=== PATIENT | female | born 1980 | race Caucasian/White ===

== ENCOUNTER 2020-02-03 08:24 | Outpatient (REF) | payer SELFPAY | END 2020-02-03 08:25 | disposition home or self-care (01) | LOC: HO.LAB 08:24 | PROVIDERS: Visit Provider Internal Medicine | DX: Z20.828 Contact with and (suspected) exposure to other viral communicable diseases (principal) | CPT/HCPCS: C9803; U0003 ==

== ENCOUNTER 2022-06-04 11:59 | Emergency (ER) | payer OTHER, SELFPAY ==
--- NOTE | ~2022-06-04 | CT_ITS ---
EXAMINATION: CT HEAD WITHOUT CONTRAST CLINICAL INFORMATION: Severe headache. Dizziness. Nausea. COMPARISON: None available. TECHNIQUE: Contiguous axial imaging was performed from the skull base to vertex without intravenous administration of contrast. This CT examination was performed using dose optimization techniques as appropriate, variously including the following: *Automated exposure control *Adjustment of mA and/or kV according to patient size (this includes techniques or standardized protocols for targeted exams where dose is matched to indication/reason for exam; i.e. extremities or head) *Use of iterative reconstruction technique DLP: 525 mGy-cm FINDINGS: There is no evidence of acute intracranial hemorrhage or territorial infarction. No abnormal mass effect or midline shift is appreciated. Jones-white differentiation is well preserved. No extra-axial fluid collections. The ventricular system and cortical sulci are normal in size. The osseous structures and soft tissues are normal. The visualized paranasal sinuses and mastoid air cells are well aerated. CT/CT head/brain wo IV con IMPRESSION: No CT evidence of acute intracranial abnormality.
[2022-06-04 12:18] VITALS: BP 120/45; PULSE 69; RESP 18; TEMP 36.9; O2SAT 99; BMI 21.7
--- NOTE | 2022-06-04 12:23 | ED_ITS ---
HPI - Headache General Chief Complaint: Headache <MAYELA Lyon - Last Filed: 06/06/22 07:39> Stated Complaint: severe headache <MAYELA Lyon - Last Filed: 06/06/22 07:39> Time Seen by Provider: 06/04/22 16:04 <MAYELA Lyon - Last Filed: 06/06/22 07:39> Source: patient <Claudette Ford MD - Last Filed: 06/04/22 18:53> Mode of arrival: ambulatory <Claudette Ford MD - Last Filed: 06/04/22 18:53> History of Present Illness HPI Narrative: This is a 41-year-old female who is not on any prescription medications and denies any past medical history of diabetes or hypertension. Patient presents with 2 days of headache with photosensitivity as well some mild nausea but denies any visual disturbances such as double vision/blurred vision and denies any auditory or speech changes and denies any difficulty with numbness /weakness in any extremities. Patient denies any fever, chills, ear pain, sinus pain, nasal congestion, sore throat. <Claudette Ford MD - Last Filed: 06/04/22 18:53> Related Data Allergies/Adverse Reactions: Allergies Allergy/AdvReac Type Severity Reaction Status Date / Time No Known Allergies Allergy Verified 06/04/22 12:18 <MAYELA Lyon - Last Filed: 06/06/22 07:39> Review of Systems 2 Review of Systems: Pertinent positives and negatives as stated in HPI. <Claudette Ford MD - Last Filed: 06/04/22 18:53> FOR[facility]LY [facility] Past Medical History Source: nursing notes reviewed <Claudette Ford MD - Last Filed: 06/04/22 18:53> Social History Social History: Social History Advance Directives: No Advance Directives Information Provided: No <MAYELA Lyon - Last Filed: 06/06/22 07:39> Physical Exam Vital Signs: Vital Signs: Last Vital Signs Temp 98.4 F 06/04/22 12:18 Pulse 67 06/04/22 16:37 Resp 16 06/04/22 16:37 BP 118/70 06/04/22 16:37 Pulse Ox 99 06/04/22 16:37 O2 Del Method Room Air 06/04/22 16:37 BMI result Body Mass Index 21.7 <MAYELA Lyon - Last Filed: 06/06/22 07:39> Vital Signs: Last Vital Signs Temp 98.4 F 06/04/22 12:18 Pulse 67 06/04/22 16:37 Resp 16 06/04/22 16:37 BP 118/70 06/04/22 16:37 Pulse Ox 99 06/04/22 16:37 O2 Del Method Room Air 06/04/22 16:37 BMI result Body Mass Index 21.7 VITAL SIGNS: Reviewed. GENERAL: Well developed, well nourished, in no acute distress. HEAD: Normocephalic/atraumatic EYES: PERRLA, EOMI EARS: Ext canals without abnormality, TMs non-bulging and non-erythematous NOSE: Nares patent bilateral OROPHARYNX: no oral lesions noted, posterior pharynx clear and non-erythematous without noted tonsillar enlargement/erythema/exudates NECK: Supple, no adenopathy, no pain on flexion or extension LUNGS: Normal breath sounds. No adventitious sounds or accessory muscle use. SpO2<99> CARDIOVASCULAR: Regular rate and rhythm without noted murmurs ABDOMEN: Soft, non-tender, non-distended with bowel sounds. MUSCULOSKELETAL: No tenderness, deformities, or effusions noted on gross inspection. EXTREMITIES: No cyanosis, clubbing or edema. SKIN: Inspection of the skin reveals no rashes NEUROLOGIC: Alert and oriented x 4. Strength and sensation to light touch were grossly intact x 4, no facial asymmetry, no pronator drift, cranial nerves 2-12 are grossly intact. <Claudette Ford MD - Last Filed: 06/04/22 18:53> Course Course Course Narrative: RME; 41 Yolld presents to the ED for headache, photophobia, and nausea since yesterday. patient has pmh of meningitis. negative for any fever or chills. exam negative for nucal rigidity or any neck meningeal symptoms. labs, HeadCT, SARS ordered. Neuro exam is intact. <MAYELA Lyon - Last Filed: 06/06/22 07:39> Medications Administered Discontinued Medications Generic Name Dose Route Start Last Admin Trade Name Freq PRN Reason Stop Dose Admin Acetaminophen 975 mg 06/04/22 13:15 06/04/22 13:25 Acetaminophen 325 Mg Tablet PO 06/04/22 13:16 975 mg ONCE ONE Administration Acetaminophen/Butalbital/Caffeine 1 tab 06/04/22 18:08 06/04/22 18:27 Butalb/Acetamin/Caff 50/325/40 Tablet PO 06/04/22 18:09 1 tab ONCE ONE Administration Diphenhydramine HCl 25 mg 06/04/22 16:06 06/04/22 16:31 Diphenhydramine Hcl 50 Mg/Ml Vial IVPUSH 06/04/22 16:07 25 mg ONCE ONE Administration Sodium Chloride 1,000 mls @ 999 mls/hr 06/04/22 16:15 06/04/22 18:05 Ns IV 06/04/22 17:15 Infused .Q1H1M KEVIN Infusion Ketorolac Tromethamine 15 mg 06/04/22 16:06 06/04/22 16:32 Ketorolac Tromethamine 30 Mg/Ml Vial IVPUSH 06/04/22 16:07 15 mg ONCE ONE Administration Metoclopramide HCl 10 mg 06/04/22 16:06 06/04/22 16:32 Metoclopramide Hcl 10 Mg/2 Ml Vial IVPUSH 06/04/22 16:07 10 mg ONCE ONE Administration <MAYELA Lyon - Last Filed: 06/06/22 07:39> Medications Administered Discontinued Medications Generic Name Dose Route Start Last Admin Trade Name Freq PRN Reason Stop Dose Admin Acetaminophen 975 mg 06/04/22 13:15 06/04/22 13:25 Acetaminophen 325 Mg Tablet PO 06/04/22 13:16 975 mg ONCE ONE Administration Acetaminophen/Butalbital/Caffeine 1 tab 06/04/22 18:08 06/04/22 18:27 Butalb/Acetamin/Caff 50/325/40 Tablet PO 06/04/22 18:09 1 tab ONCE ONE Administration Diphenhydramine HCl 25 mg 06/04/22 16:06 06/04/22 16:31 Diphenhydramine Hcl 50 Mg/Ml Vial IVPUSH 06/04/22 16:07 25 mg ONCE ONE Administration Sodium Chloride 1,000 mls @ 999 mls/hr 06/04/22 16:15 06/04/22 18:05 Ns IV 06/04/22 17:15 Infused .Q1H1M KEVIN Infusion Ketorolac Tromethamine 15 mg 06/04/22 16:06 06/04/22 16:32 Ketorolac Tromethamine 30 Mg/Ml Vial IVPUSH 06/04/22 16:07 15 mg ONCE ONE Administration Metoclopramide HCl 10 mg 06/04/22 16:06 06/04/22 16:32 Metoclopramide Hcl 10 Mg/2 Ml Vial IVPUSH 06/04/22 16:07 10 mg ONCE ONE Administration <Claudette Ford MD - Last Filed: 06/04/22 18:53> Medical Decision Making Medical Decision Making MDM Narrative: 41-year-old female with history and clinical presentation most consistent with a migraine. Patient clarifies whether she would be able to go to work tomorrow. Will rehydrate and treat patient with combination analgesics. Patient has no focal deficits and I have no clinical suspicion that this is meningitis. On re-evaluation after patient received IV fluids and combination medications to include migraine cocktail she states that she is feeling better and is otherwise discharged home in stable condition with instructions to follow-up with her primary care doctor. <Claudette Ford MD - Last Filed: 06/04/22 18:53> Differential Diagnosis Please see the discussion above <Claudette Ford MD - Last Filed: 06/04/22 18:53> Lab Data Please see the discussion above <Claudette Ford MD - Last Filed: 06/04/22 18:53> Result Diagrams: 06/04/22 12:54 06/04/22 12:54 <AMYELA Lyon - Last Filed: 06/06/22 07:39> Labs: Lab Results 06/04/22 06/04/22 06/04/22 Range/Units 12:54 12:54 12:54 WBC 11.2 H (4.8-10.8) X10*3/uL RBC 5.51 H (4.20-5.50) X10*6/uL Hgb 15.2 (12.0-16.0) g/dl Hct 44.4 (37.0-47.0) % MCV 80.6 (80.0-98.0) fL MCH 27.6 (27.0-33.0) pg MCHC 34.2 (31.0-35.0) g/dl RDW 12.1 (11.0-16.0) % Plt Count 252 (160-400) X10*3/uL MPV 9.6 (9.4-12.3) fL Immature Gran % (Auto) 0.4 (0.0-0.4) % Neut % (Auto) 75.9 H (45-73) % Lymph % (Auto) 18.2 L (20-40) % Pershing % (Auto) 4.6 (2-11) % Eos % (Auto) 0.6 (0-4) % Baso % (Auto) 0.3 (0-2) % Lymph # (Auto) 2.1 (1.2-4.9) X10*3/uL Pershing # (Auto) 0.5 (0.1-1.2) X10*3/uL Eos # (Auto) 0.1 (0.0-0.4) X10*3/uL Baso # (Auto) 0.0 (0.0-0.2) X10*3/uL Abs Immat Gran (auto) 0.04 H (0.00-0.03) X10*3/uL Absolute Neuts (auto) 8.5 H (2.0-8.3) x10*3/uL Absolute Nucleated RBC 0.000 (0.0-0.012) X10*3/uL Nucleated RBC % (auto) 0.0 (0.0-0.2) /100WBC ESR 2 (0-20) MM/HR PT (10.0-13.1) SEC INR (0.9-1.1) APTT (26.0-36.4) SEC Sodium 140 (135-145) mmol/L Potassium 4.2 (3.3-5.1) mmol/L Chloride 107 (96-108) mmol/L Carbon Dioxide 26 (22-29) mmol/L Anion Gap 11 L (12-20) BUN 10 (9-16) mg/dL Creatinine 0.75 (0.5-1.4) mg/dL Estim Creat Clear Calc 83.5 Estimated GFR > 60 Random Glucose 89 (60-115) mg/dL Calcium 9.7 (8.4-10.2) mg/dL Total Bilirubin 0.8 (0.0-1.0) mg/dL AST 13 (5-31) U/L ALT 12 (0-31) U/L Alkaline Phosphatase 63 (39-117) U/L C-Reactive Protein 0.10 (< or = 0.50) mg/dL Total Protein 7.3 (6.5-8.0) g/dL Albumin 4.7 (3.5-5.0) g/dL Beta HCG, Quant < 2 mIU/mL Influenza Type A (PCR) (Negative) Influenza Type B (PCR) (Negative) RSV RNA Qual (PCR) (Negative) SARS-CoV-2 RNA (RT-PCR) (Negative) 06/04/22 06/04/22 Range/Units 12:54 12:54 WBC (4.8-10.8) X10*3/uL RBC (4.20-5.50) X10*6/uL Hgb (12.0-16.0) g/dl Hct (37.0-47.0) % MCV (80.0-98.0) fL MCH (27.0-33.0) pg MCHC (31.0-35.0) g/dl RDW (11.0-16.0) % Plt Count (160-400) X10*3/uL MPV (9.4-12.3) fL Immature Gran % (Auto) (0.0-0.4) % Neut % (Auto) (45-73) % Lymph % (Auto) (20-40) % Pershing % (Auto) (2-11) % Eos % (Auto) (0-4) % Baso % (Auto) (0-2) % Lymph # (Auto) (1.2-4.9) X10*3/uL Pershing # (Auto) (0.1-1.2) X10*3/uL Eos # (Auto) (0.0-0.4) X10*3/uL Baso # (Auto) (0.0-0.2) X10*3/uL Abs Immat Gran (auto) (0.00-0.03) X10*3/uL Absolute Neuts (auto) (2.0-8.3) x10*3/uL Absolute Nucleated RBC (0.0-0.012) X10*3/uL Nucleated RBC % (auto) (0.0-0.2) /100WBC ESR (0-20) MM/HR PT 11.7 (10.0-13.1) SEC INR 1.0 (0.9-1.1) APTT 30.8 (26.0-36.4) SEC Sodium (135-145) mmol/L Potassium (3.3-5.1) mmol/L Chloride (96-108) mmol/L Carbon Dioxide (22-29) mmol/L Anion Gap (12-20) BUN (9-16) mg/dL Creatinine (0.5-1.4) mg/dL Estim Creat Clear Calc Estimated GFR Random Glucose (60-115) mg/dL Calcium (8.4-10.2) mg/dL Total Bilirubin (0.0-1.0) mg/dL AST (5-31) U/L ALT (0-31) U/L Alkaline Phosphatase (39-117) U/L C-Reactive Protein (< or = 0.50) mg/dL Total Protein (6.5-8.0) g/dL Albumin (3.5-5.0) g/dL Beta HCG, Quant mIU/mL Influenza Type A (PCR) NEGATIVE (Negative) Influenza Type B (PCR) NEGATIVE (Negative) RSV RNA Qual (PCR) NEGATIVE (Negative) SARS-CoV-2 RNA (RT-PCR) NEGATIVE (Negative) <MAYELA Lyon - Last Filed: 06/06/22 07:39> Lab Results 06/04/22 06/04/22 06/04/22 Range/Units 12:54 12:54 12:54 WBC 11.2 H (4.8-10.8) X10*3/uL RBC 5.51 H (4.20-5.50) X10*6/uL Hgb 15.2 (12.0-16.0) g/dl Hct 44.4 (37.0-47.0) % MCV 80.6 (80.0-98.0) fL MCH 27.6 (27.0-33.0) pg MCHC 34.2 (31.0-35.0) g/dl RDW 12.1 (11.0-16.0) % Plt Count 252 (160-400) X10*3/uL MPV 9.6 (9.4-12.3) fL Immature Gran % (Auto) 0.4 (0.0-0.4) % Neut % (Auto) 75.9 H (45-73) % Lymph % (Auto) 18.2 L (20-40) % Pershing % (Auto) 4.6 (2-11) % Eos % (Auto) 0.6 (0-4) % Baso % (Auto) 0.3 (0-2) % Lymph # (Auto) 2.1 (1.2-4.9) X10*3/uL Pershing # (Auto) 0.5 (0.1-1.2) X10*3/uL Eos # (Auto) 0.1 (0.0-0.4) X10*3/uL Baso # (Auto) 0.0 (0.0-0.2) X10*3/uL Abs Immat Gran (auto) 0.04 H (0.00-0.03) X10*3/uL Absolute Neuts (auto) 8.5 H (2.0-8.3) x10*3/uL Absolute Nucleated RBC 0.000 (0.0-0.012) X10*3/uL Nucleated RBC % (auto) 0.0 (0.0-0.2) /100WBC ESR 2 (0-20) MM/HR PT (10.0-13.1) SEC INR (0.9-1.1) APTT (26.0-36.4) SEC Sodium 140 (135-145) mmol/L Potassium 4.2 (3.3-5.1) mmol/L Chloride 107 (96-108) mmol/L Carbon Dioxide 26 (22-29) mmol/L Anion Gap 11 L (12-20) BUN 10 (9-16) mg/dL Creatinine 0.75 (0.5-1.4) mg/dL Estim Creat Clear Calc 83.5 Estimated GFR > 60 Random Glucose 89 (60-115) mg/dL Calcium 9.7 (8.4-10.2) mg/dL Total Bilirubin 0.8 (0.0-1.0) mg/dL AST 13 (5-31) U/L ALT 12 (0-31) U/L Alkaline Phosphatase 63 (39-117) U/L C-Reactive Protein 0.10 (< or = 0.50) mg/dL Total Protein 7.3 (6.5-8.0) g/dL Albumin 4.7 (3.5-5.0) g/dL Beta HCG, Quant < 2 mIU/mL Influenza Type A (PCR) (Negative) Influenza Type B (PCR) (Negative) RSV RNA Qual (PCR) (Negative) SARS-CoV-2 RNA (RT-PCR) (Negative) 06/04/22 06/04/22 Range/Units 12:54 12:54 WBC (4.8-10.8) X10*3/uL RBC (4.20-5.50) X10*6/uL Hgb (12.0-16.0) g/dl Hct (37.0-47.0) % MCV (80.0-98.0) fL MCH (27.0-33.0) pg MCHC (31.0-35.0) g/dl RDW (11.0-16.0) % Plt Count (160-400) X10*3/uL MPV (9.4-12.3) fL Immature Gran % (Auto) (0.0-0.4) % Neut % (Auto) (45-73) % Lymph % (Auto) (20-40) % Pershing % (Auto) (2-11) % Eos % (Auto) (0-4) % Baso % (Auto) (0-2) % Lymph # (Auto) (1.2-4.9) X10*3/uL Pershing # (Auto) (0.1-1.2) X10*3/uL Eos # (Auto) (0.0-0.4) X10*3/uL Baso # (Auto) (0.0-0.2) X10*3/uL Abs Immat Gran (auto) (0.00-0.03) X10*3/uL Absolute Neuts (auto) (2.0-8.3) x10*3/uL Absolute Nucleated RBC (0.0-0.012) X10*3/uL Nucleated RBC % (auto) (0.0-0.2) /100WBC ESR (0-20) MM/HR PT 11.7 (10.0-13.1) SEC INR 1.0 (0.9-1.1) APTT 30.8 (26.0-36.4) SEC Sodium (135-145) mmol/L Potassium (3.3-5.1) mmol/L Chloride (96-108) mmol/L Carbon Dioxide (22-29) mmol/L Anion Gap (12-20) BUN (9-16) mg/dL Creatinine (0.5-1.4) mg/dL Estim Creat Clear Calc Estimated GFR Random Glucose (60-115) mg/dL Calcium (8.4-10.2) mg/dL Total Bilirubin (0.0-1.0) mg/dL AST (5-31) U/L ALT (0-31) U/L Alkaline Phosphatase (39-117) U/L C-Reactive Protein (< or = 0.50) mg/dL Total Protein (6.5-8.0) g/dL Albumin (3.5-5.0) g/dL Beta HCG, Quant mIU/mL Influenza Type A (PCR) NEGATIVE (Negative) Influenza Type B (PCR) NEGATIVE (Negative) RSV RNA Qual (PCR) NEGATIVE (Negative) SARS-CoV-2 RNA (RT-PCR) NEGATIVE (Negative) <Claudette Ford MD - Last Filed: 06/04/22 18:53> Radiology Impression Radiologist Impression: My interpretation is in agreement with radiology's impression of the imaging studies. <Claudette Ford MD - Last Filed: 06/04/22 18:53> Discharge Plan Discharge Clinical Impression: Headache <MAYELA Lyon - Last Filed: 06/06/22 07:39> Patient Disposition: Home, Self-Care <MAYELA Lyon - Last Filed: 06/06/22 07:39> Instructions: General Headache (ED) <MAYELA Lyon - Last Filed: 06/06/22 07:39> Additional Instructions: 1. Tylenol 1000 mg, orally, every 6 hours as needed for headache. Do not exceed 4000mg within 24 hours. 2. Ibuprofen 400 mg, orally with milk or food, every 6 hours as needed for headache. I recommend that you take this with the Tylenol for improved symptom relief. 3. Also recommend that you stay well hydrated, especially with water. 4. Follow-up with your primary care provider by calling the office on Sunday morning. Return to the ER for any worsening symptoms. <MAYELA Lyon - Last Filed: 06/06/22 07:39> Referrals: Martina Cardona MD [Primary Care Provider] - <MAYELA Lyon - Last Filed: 06/06/22 07:39> Interventions: ED Discharge Assessment Last Done: 06/04/22 19:07 <MAYELA Lyon - Last Filed: 06/06/22 07:39> Discharge Date/Time: 06/04/22 19:08 <MAYELA Lyon - Last Filed: 06/06/22 07:39>
[2022-06-04 12:59] LABS: MANUAL DIFF FLAG NO
[2022-06-04 13:00] LABS: Basophils Percent Auto 0.3 % (0-2); Eosinophils Absolute Auto 0.1 X10*3/uL (0.0-0.4); Eosinophils Percent Auto 0.6 % (0-4); Hematocrit 44.4 % (37.0-47.0); Hemoglobin 15.2 g/dl (12.0-16.0); Imm Gran Abs Auto 0.04 X10*3/uL (0.00-0.03); Imm Gran Pct Auto 0.4 % (0.0-0.4); Lymphocytes Absolute Auto 2.1 X10*3/uL (1.2-4.9); Lymphocytes Percent Auto 18.2 % (20-40); Mean Corpuscular HGB Conc 34.2 g/dl (31.0-35.0); Mean Corpuscular Hemoglobin 27.6 pg (27.0-33.0); Mean Corpuscular Volume 80.6 fL (80.0-98.0); Mean Platelet Volume 9.6 fL (9.4-12.3); Monocytes Absolute Auto 0.5 X10*3/uL (0.1-1.2); Monocytes Percent Auto 4.6 % (2-11); Neutrophils Absolute Auto 8.5 x10*3/uL (2.0-8.3); Neutrophils Percent Auto 75.9 % (45-73); Platelet Count 252 X10*3/uL (160-400); Red Blood Count 5.51 X10*6/uL (4.20-5.50); Red Cell Distribution Width 12.1 % (11.0-16.0); White Blood Count 11.2 X10*3/uL (4.8-10.8)
[2022-06-04 13:06] LABS: Prothrombin Time 11.7 SEC (10.0-13.1)
[2022-06-04 13:08] LABS: Partial Thromboplastin Time 30.8 SEC (26.0-36.4)
[2022-06-04 13:20] LABS: Alanine Aminotransferase 12 U/L (0-31); Albumin Level 4.7 g/dL (3.5-5.0); Alkaline Phosphatase 63 U/L (39-117); Anion Gap 11 (12-20); Aspartate Amino Transferase 13 U/L (5-31); Bilirubin Total 0.8 mg/dL (0.0-1.0); Blood Urea Nitrogen 10 mg/dL (9-16); Calcium 9.7 mg/dL (8.4-10.2); Carbon Dioxide 26 mmol/L (22-29); Chloride 107 mmol/L (96-108); Creatinine Clr Calc Pharmacy 83.5; Estimated Glomerular Filt Rate > 60; Glucose Random 89 mg/dL (60-115); Potassium 4.2 mmol/L (3.3-5.1); Sodium 140 mmol/L (135-145); Total Protein 7.3 g/dL (6.5-8.0)
[2022-06-04 13:24] LABS: HCG Quantitative < 2 mIU/mL
[2022-06-04] MEDS: Acetaminophen 325 MG TABLET 975 MG PO (13:25)
[2022-06-04 13:39] LABS: Influenza A PCR NEGATIVE (Negative); Influenza B PCR NEGATIVE (Negative); Resp Syncy Virus RNA Qual PCR NEGATIVE (Negative); SARS COV2 PCR INHOUSE NEGATIVE (Negative)
[2022-06-04 13:53] LABS: Erythrocyte Sedimentation Rate 2 MM/HR (0-20)
[2022-06-04] MEDS: diphenhydrAMINE HCL 50 MG/ML VIAL 25 MG IVPUSH (16:31)
[2022-06-04] MEDS: Metoclopramide HCl 10 MG/2 ML VIAL IVPUSH (16:32)
[2022-06-04] MEDS: Ketorolac Tromethamine 30 MG/ML VIAL 15 MG IVPUSH (16:32)
[2022-06-04] MEDS: 0.9 % Sodium Chloride 1,000 ML 999 ML IV (16:35)
[2022-06-04 16:37] VITALS: BP 118/70; PULSE 67; RESP 16; O2SAT 99
[2022-06-04] MEDS: Butalb/Acetamin/Caff 50/325/40 TABLET 1 TAB PO (18:27)
== END 2022-06-04 19:08 | disposition home or self-care (01) ==
PROVIDERS: Physician Assistant; Emergency Provider Student in an Organized Health Care Education/Training Program; PCP Internal Medicine
DX: R51.9 Headache, unspecified (principal); R11.0 Nausea; Z79.899 Other long term (current) drug therapy; Z20.822 Contact with and (suspected) exposure to COVID-19; Z20.828 Contact with and (suspected) exposure to other viral communicable diseases
CPT/HCPCS: 0241U; 36415; 70450; 80053; 84702; 85025; 85610; 85652; 85730; 86140; 96361; 96374; 96375; 99284; J1200; J1885; J2765

== ENCOUNTER 2023-12-04 12:22 | Emergency (ER) | payer OTHER, SELFPAY ==
--- NOTE | 2023-12-04 | ECG_ITS ---
Test Reason : PALPITATIONS Blood Pressure : / mmHG Vent. Rate : 060 BPM Atrial Rate : 060 BPM P-R Int : 144 ms QRS Dur : 064 ms QT Int : 376 ms P-R-T Axes : 032 081 052 degrees QTc Int : 376 ms Normal sinus rhythm Normal ECG When compared with ECG of 04-DEC-2023 12:31, Vent. rate has decreased BY 151 BPM rhythm change Referred By: Emily Last Electronically Signed By:SANJUANITA CARO
--- NOTE | ~2023-12-04 | XR_ITS ---
EXAMINATION: XR CHEST CLINICAL INFORMATION: SVT COMPARISON: None available. TECHNIQUE: Frontal view of the chest was obtained. FINDINGS: No significant abnormality is noted involving the heart, lungs, mediastinum, bony thorax or soft tissues. XR/XR chest 1V IMPRESSION: Unremarkable examination. Electronically signed by: Nadja Marin MD 12/04/2023 02:35 PM EDT RP
--- NOTE | 2023-12-04 12:30 | ECG_ITS ---
Test Reason : PALPITATIONS Blood Pressure : / mmHG Vent. Rate : 211 BPM Atrial Rate : 214 BPM P-R Int : 096 ms QRS Dur : 072 ms QT Int : 206 ms P-R-T Axes : 047 083 -73 degrees QTc Int : 386 ms Supraventricular tachycardia Abnormal ECG No previous ECGs available Referred By: Jessica Lanza Electronically Signed By:SANJUANITA CARO
[2023-12-04 12:48] VITALS: BP 119/71; PULSE 117; RESP 16; TEMP 36.9; O2SAT 99; BMI 23.2
[2023-12-04 12:57] VITALS: BP 117/83; PULSE 89; RESP 12; O2SAT 99
[2023-12-04 12:58] VITALS: BP 119/71; PULSE 120
[2023-12-04] MEDS: 0.9 % Sodium Chloride 1,000 ML 999 ML IV (12:58)
[2023-12-04] MEDS: Metoprolol Tartrate 25 MG TABLET PO (12:58)
--- NOTE | 2023-12-04 13:06 | PC.NURSE ---
patient presents through external triage with cc of palpitations, states she has been feeling them on and off for the last hour or so and when they come on she also has some shortness of breath. patient noted to have HR in the 200s in external triage, brought immediately to ED16 and MD immediately at bedside to assess. while placing patient on monitor patient noted to be intermittently tachycardic in the 200s, frequenty converting on her own down to a rate of 80s with NSR noted on monitor. patient states this has happened in the past and she has an appointment with a electric power machine operator scheduled for this but came in today after her PCP advised her to be seen. patient denies any chest pain or swelling to extremities. states she does not take any medications at home, and denies any recent illness. patient VS otherwise wnl. able to speak in clear and complete sentences, patient is alert and oriented x4, vasovagal maneuvers demonstrated with patient and able to perform and intermittently come out of SVT on her own. patient able to take PO metoprolol per APR, 20g PIV placed in RAC, 1L IV fluids hung and flowing wide open. chest xray at bedside at this time. blood work drawn and sent to lab.
[2023-12-04 13:08] LABS: MANUAL DIFF FLAG NO
[2023-12-04 13:11] LABS: Basophils Percent Auto 0.3 % (0-2); Eosinophils Absolute Auto 0.1 X10*3/uL (0.0-0.4); Eosinophils Percent Auto 0.8 % (0-4); Hematocrit 39.7 % (37.0-47.0); Hemoglobin 13.5 g/dl (12.0-16.0); Imm Gran Abs Auto 0.04 X10*3/uL (0.00-0.03); Imm Gran Pct Auto 0.5 % (0.0-0.4); Lymphocytes Absolute Auto 2.6 X10*3/uL (1.2-4.9); Lymphocytes Percent Auto 30.4 % (20-40); Mean Corpuscular Hemoglobin 27.7 pg (27.0-33.0); Mean Corpuscular Volume 81.5 fL (80.0-98.0); Mean Platelet Volume 9.6 fL (9.4-12.3); Monocytes Absolute Auto 0.6 X10*3/uL (0.1-1.2); Monocytes Percent Auto 7.2 % (2-11); Neutrophils Absolute Auto 5.3 x10*3/uL (2.0-8.3); Neutrophils Percent Auto 60.8 % (45-73); Platelet Count 228 X10*3/uL (160-400); Red Blood Count 4.87 X10*6/uL (4.20-5.50); Red Cell Distribution Width 12.9 % (11.0-16.0); White Blood Count 8.7 X10*3/uL (4.8-10.8)
[2023-12-04 13:30] VITALS: BP 104/82; PULSE 70; RESP 16; O2SAT 100
[2023-12-04 13:32] LABS: B Type Natriuretic Peptide 42 pg/mL (<100)
[2023-12-04 13:36] LABS: Troponin-I High Sensitivity < 2.7 ng/L (<3.5-17.0)
[2023-12-04 13:42] LABS: Alanine Aminotransferase 18 U/L (0-31); Albumin Level 3.9 g/dL (3.5-5.0); Alkaline Phosphatase 52 U/L (39-117); Anion Gap 11 (12-20); Aspartate Amino Transferase 18 U/L (5-31); Bilirubin Direct 0.1 mg/dL (0.0-0.5); Bilirubin Total 0.5 mg/dL (0.0-1.0); Blood Urea Nitrogen 11 mg/dL (9-16); Calcium 8.9 mg/dL (8.4-10.2); Carbon Dioxide 23 mmol/L (22-29); Chloride 110 mmol/L (96-108); Creatinine Clr Calc Pharmacy 83.7; Estimated Glomerular Filt Rate > 60; Glucose Random 91 mg/dL (60-115); Lipase 33 U/L (8-78); Magnesium 2.1 mg/dL (1.6-2.6); Potassium 3.9 mmol/L (3.3-5.1); Sodium 140 mmol/L (135-145); Total Protein 6.3 g/dL (6.5-8.0)
[2023-12-04 13:44] LABS: Appearance Urine Clear; Color Urine Yellow; Glucose Urine UA Negative (Negative); Leukocyte Esterase Urine Negative (Negative); Nitrite Urine Negative (Negative); PH 7.5 (5.0-9.0); Specific Gravity - Urine <= 1.005 (1.005-1.025); UMIC TRIGGER UACC YES; Urine Blood Trace (Negative); Urine Ketones Negative (Negative); Urine Protein Negative (Neg-Trace)
[2023-12-04 13:45] LABS: UPreg QC Valid YES; Urine Pregnancy NEGATIVE (NEGATIVE)
[2023-12-04 13:46] LABS: Bacteria Urine None Seen (None Seen); Hyaline Casts Urine 0-2 /LPF (0-2); RBC Urine 0-2 /HPF (0-2); Squamous Epithelial Cell Urine 0-2 /HPF (0-2); WBC Urine 0-5 /HPF (0-5)
--- NOTE | 2023-12-04 13:46 | ED_ITS ---
HPI - Arrhythmia/Palpitations General Chief Complaint: Arrhythmia/Palpitations Stated Complaint: Abnormal heart rate Time Seen by Provider: 12/04/23 12:51 Source: patient Mode of arrival: ambulatory Limitations: no limitations History of Present Illness ED Provider: DR. Last HPI narrative: 42-year-old female otherwise healthy came in for evaluation of palpitation found to have heart rate of above 200, patient was brought to room 16 patient is calm, patient is in SVT with high rate of 170-200, SVT break down with Valsalva maneuver, no CP, no SOB, no lower extremity swelling or tenderness, patient has no known medical history, seen by her PCP last week for similar symptoms and supposed to see court officer in 2 days Related Data Previous Rx's ?Medication ?Instructions ?Recorded metoprolol succinate 25 mg 12.5 mg (1/2 x 25 mg) PO DAILY #14 12/04/23 tablet,extended release 24 hr tabs Allergies Allergy/AdvReac Type Severity Reaction Status Date / Time No Known Allergies Allergy Verified 12/04/23 12:52 Review of Systems 2 Review of Systems: All other systems are reviewed and are negative Constitutional: Reports as per HPI and Reports no additional constitutional complaints Eyes: Reports as per HPI and Reports no additional eye complaints Reports system reviewed and no additional complaints, except as documented Cardiovascular: Reports as per HPI and Reports no additional cardiovascular complaints Respiratory: Reports as per HPI and Reports no additional respiratory complaints Gastrointestinal: Reports as per HPI and Reports no additional gastrointestinal complaints Genitourinary: Reports no additional female genitourinary complaints Musculoskeletal: Reports no additional musculoskeletal complaints Skin/Breast: Reports system reviewed and no additional complaints, except as docu Psychiatric: Reports no additional psychiatric complaints Endocrine: Reports no additional endocrine complaints Hematologic/Lymphatic: Reports no additional hematologic/lymphatic complaints Allergic/Immunologic: Reports no additional allergic/immunologic complaints Reports system reviewed and no additional complaints, except as documented and Reports Abnormal speech present [facility] Social History Social History Smoked in Last 30 Days: No Use of substances other than those prescribed or required for medical reasons: No Advance Directives: No Advance Directives Information Provided: Yes Do you have a plan to hurt others: No Plan Patient : No Physical Exam 2 Vital Signs: Vital Signs: Last Vital Signs Temp 98.2 F 12/04/23 14:30 Pulse 73 12/04/23 14:30 Resp 16 12/04/23 14:30 BP 102/74 12/04/23 14:30 Pulse Ox 98 12/04/23 14:30 O2 Del Method Room Air 12/04/23 14:30 BMI result Body Mass Index 23.2 Vital signs have been reviewed and appear to be correct. Blood pressure elevated. Heart rate normal. Respiratory rate normal. Temperature normal. Oxygen saturation normal. Appearance: Alert. Oriented X3. No acute distress. Head: Normal external exam. Normocephalic. Atraumatic. No Russ signs noted. No raccoon eyes noted Eyes: PERRLA. EOMI. Conjunctiva and sclera normal. Eyelids normal. ENT: TM's Normal. Pharynx normal. Uvula midline. Moist mucous membranes. No trismus noted. No drooling noted. No muffled voice noted. Neck: Normal inspection. Neck supple. FROM. No adenopathy. Thyroid Normal. No meningeal signs. No neck mass noted. CVS: Normal heart rate and rhythm. Heart sound normal. No murmurs noted. Pulses normal throughout. Respiratory: No respiratory distress. Painless inspiration. Breath sounds normal. No wheezes/rales/rhonchi noted. Chest nontender. No accessory muscle usage noted or decreased air movement noted. Abdomen: Soft and nontender. Bowel sounds normal in all 4 quadrants. No distention noted. No organomegaly noted. No visible injury noted. Back: No CVA tenderness. Full range of motion noted. Skin: Skin warm and dry. Normal skin color. Normal skin turgor. No rashes/lesions/lacerations noted. Extremities: No lower extremity edema. Extremities exhibit normal range of motion. Extremities nontender. Neuro: Oriented X 3. Cranial nerve exam: II-XII are grossly intact No motor deficit. No sensory deficit. Reflexes normal. Course Reevaluation(s) Reevaluation #1: came in with palpitation, hemodynamically stable, heart rate was fluctuating 72-210 with SVT, easy to break with Valsalva, patient was given metoprolol 25 mg p.o., was able to control heart rate in the 70s, patient was made to walk in the emergency department with out worsening heart rate. Labs were unremarkable, patient is already have an appointment with court officer in 2 days will discharge the patient on metoprolol 12.5 mg daily. instructed to stay away from caffeine drinks. Time: 15:07 Medications Administered Discontinued Medications Generic Name Dose Route Start Last Admin Trade Name Mervin PRN Reason Stop Dose Admin Sodium Chloride 1,000 mls @ 999 mls/hr 12/04/23 12:51 12/04/23 14:27 Ns IV 12/04/23 13:51 Infused .Q1H1M ONE Infusion Metoprolol Tartrate 25 mg 12/04/23 12:52 12/04/23 12:58 Metoprolol Tartrate 25 Mg Tablet PO 12/04/23 12:53 25 mg ONCE ONE Administration Protocol Medical Decision Making Differential Diagnosis Differential Diagnoses: The differential diagnosis associated with the presentation includes ( SVT, AFib, ventricular dysrhythmia, electrolyte derangement, thyroid disorder, UTI, , SVT precipitated by cuff pain intake.) Admission/Observation Consideration of admission/observation: Escalation of care including admission/observation considered Lab Data MDM Lab Attestation statement: I reviewed the patient's lab results. 12/04/23 13:04 12/04/23 13:04 Labs: Lab Results 12/04/23 12/04/23 Range/Units 13:04 13:33 WBC 8.7 (4.8-10.8) X10*3/uL RBC 4.87 (4.20-5.50) X10*6/uL Hgb 13.5 (12.0-16.0) g/dl Hct 39.7 (37.0-47.0) % MCV 81.5 (80.0-98.0) fL MCH 27.7 (27.0-33.0) pg MCHC 34.0 (31.0-35.0) g/dl RDW 12.9 (11.0-16.0) % Plt Count 228 (160-400) X10*3/uL MPV 9.6 (9.4-12.3) fL Immature Gran % (Auto) 0.5 H (0.0-0.4) % Neut % (Auto) 60.8 (45-73) % Lymph % (Auto) 30.4 (20-40) % Mccracken % (Auto) 7.2 (2-11) % Eos % (Auto) 0.8 (0-4) % Baso % (Auto) 0.3 (0-2) % Lymph # (Auto) 2.6 (1.2-4.9) X10*3/uL Mccracken # (Auto) 0.6 (0.1-1.2) X10*3/uL Eos # (Auto) 0.1 (0.0-0.4) X10*3/uL Baso # (Auto) 0.0 (0.0-0.2) X10*3/uL Abs Immat Gran (auto) 0.04 H (0.00-0.03) X10*3/uL Absolute Neuts (auto) 5.3 (2.0-8.3) x10*3/uL Absolute Nucleated RBC 0.000 (0.0-0.012) X10*3/uL Nucleated RBC % (auto) 0.0 (0.0-0.2) /100WBC Sodium 140 (135-145) mmol/L Potassium 3.9 (3.3-5.1) mmol/L Chloride 110 H (96-108) mmol/L Carbon Dioxide 23 (22-29) mmol/L Anion Gap 11 L (12-20) BUN 11 (9-16) mg/dL Creatinine 0.74 (0.5-1.4) mg/dL Estim Creat Clear Calc 83.7 Estimated GFR > 60 Random Glucose 91 (60-115) mg/dL Calcium 8.9 D (8.4-10.2) mg/dL Magnesium 2.1 (1.6-2.6) mg/dL Total Bilirubin 0.5 (0.0-1.0) mg/dL Direct Bilirubin 0.1 (0.0-0.5) mg/dL AST 18 (5-31) U/L ALT 18 (0-31) U/L Alkaline Phosphatase 52 (39-117) U/L Troponin I High Sens < 2.7 (<3.5-17.0) ng/L B-Natriuretic Peptide 42 (<100) pg/mL Total Protein 6.3 L (6.5-8.0) g/dL Albumin 3.9 (3.5-5.0) g/dL Lipase 33 (8-78) U/L TSH 1.76 (0.32-4.0) uIU/mL Urine Color Yellow Urine Appearance Clear Urine pH 7.5 (5.0-9.0) Ur Specific [place] <= 1.005 (1.005-1.025) Urine Protein Negative (Neg-Trace) mg/dL Urine Glucose (UA) Negative (Negative) mg/dL Urine Ketones Negative (Negative) mg/dL Urine Blood Trace H (Negative) Urine Nitrite Negative (Negative) Ur Leukocyte Esterase Negative (Negative) Urine RBC 0-2 (0-2) /HPF Urine WBC 0-5 (0-5) /HPF Ur Squamous Epith Cells 0-2 (0-2) /HPF Urine Bacteria None Seen (None Seen) Hyaline Casts 0-2 (0-2) /LPF Urine Test NEGATIVE (NEGATIVE) Independent Interpretation I performed an independent interpretation of an: EKG ( SVT at 211bpm, short CT interval, otherwise unremarkable intervals ST depression in V2, V3, V4, V5.) and Plain X-Ray ( chest: Unremarkable chest x-ray.) Interpretation: EKG 2. Normal sinus rhythm at 60 beats per minutes, normal intervals, no ST-T changes. Radiology Impression Discussion of test interpretation with radiology: I have reviewed the radiologist's reading. Discharge Plan Discharge Clinical Impression: Palpitations, Supraventricular tachycardia Patient Disposition: Home, Self-Care Instructions: Supraventricular Tachycardia (ED) Additional Instructions: follow-up with court officer as scheduled in 2 days. Prescriptions: New metoprolol succinate 25 mg tablet extended release 24 hr 12.5 mg PO DAILY Qty: 14 0RF Print Language: Nigerien
[2023-12-04 13:51] LABS: TSH reflex Free T4 1.76 uIU/mL (0.32-4.0)
[2023-12-04 14:30] VITALS: BP 102/74; PULSE 73; RESP 16; TEMP 36.8; O2SAT 98
--- NOTE | 2023-12-04 14:34 | MHC.EDTECH ---
Ambulation trial with telemetry and pulse ox completed with normal HR and rhythm and rate in 60-80. No aberrations. Provider Janine Last MD aware.
--- NOTE | 2023-12-04 14:51 | PC.NURSE ---
patient ambulatory with steady gait to bathroom, endorsing feeling better at this time, denies sensation of palpitations
[2023-12-04 15:25] VITALS: BP 102/74; PULSE 73; RESP 16; TEMP 36.8; O2SAT 98
== END 2023-12-04 15:28 | disposition home or self-care (01) ==
PROVIDERS: Emergency Provider Emergency Medicine
DX: I47.10 Supraventricular tachycardia, unspecified (principal); R00.2 Palpitations; R11.2 Nausea with vomiting, unspecified; R06.02 Shortness of breath; Z79.899 Other long term (current) drug therapy
CPT/HCPCS: 36415; 71045; 80048; 80076; 81001; 81025; 83690; 83735; 83880; 84443; 84484; 85025; 93005; 96360; 99284; 99285

== ENCOUNTER → 2023-12-04 12:30 | Outpatient (BNV) | payer OTHER, SELFPAY | PROVIDERS: Emergency Provider Emergency Medicine; Visit Provider Internal Medicine | DX: R00.2 Palpitations (principal); I47.10 Supraventricular tachycardia, unspecified | CPT/HCPCS: 93010 ==